=== PATIENT | female | born 1950 | race Two or more races ===

== ENCOUNTER 2024-09-06 15:11 | Emergency (ER) | payer MEDICARE ==
[~2024-09-06] VITALS: Ht 152.4 cm; Wt 72.3 kg
[2024-09-06 20:32] VITALS: BP 129/68; PULSE 68; RESP 16; TEMP 97.3; O2SAT 97
[2024-09-06] MEDS: TraMADol HCL 50 MG TABLET PO ONE (20:56)
[2024-09-07 05:10] LABS: GLUCOMETER DEV NAME(LOC) ERT.6; GLUCOSE,POINT OF CARE 193 MG/DL (70-110)
== END 2024-09-06 22:52 | disposition home or self-care (01) ==
LOC: EMS 15:11
DX: S80.211A Abrasion, right knee, initial encounter (principal); S50.311A Abrasion of right elbow, initial encounter; M25.511 Pain in right shoulder; E11.9 Type 2 diabetes mellitus without complications; I10 Essential (primary) hypertension; Z91.041 Radiographic dye allergy status; W10.9XXA Fall (on) (from) unspecified stairs and steps, initial encounter; Y93.01 Activity, walking, marching and hiking; Y92.89 Other specified places as the place of occurrence of the external cause; Y99.8 Other external cause status
CPT/HCPCS: 71101; 82962; 99284